=== PATIENT | female | born 1995 | race Two or more races ===

== ENCOUNTER 2023-04-02 06:18 | Emergency (ER) | payer OTHER ==
[~2023-04-02] VITALS: Ht 162.6 cm; Wt 63.5 kg
== END 2023-04-02 13:05 | disposition home or self-care (01) ==
LOC: ER 06:18
DX: S13.4XXA Sprain of ligaments of cervical spine, initial encounter (principal); V49.9XXA Car occupant (driver) (passenger) injured in unspecified traffic accident, initial encounter; Y93.9 Activity, unspecified; Y92.413 State road as the place of occurrence of the external cause; Y99.9 Unspecified external cause status; G89.11 Acute pain due to trauma; Z88.6 Allergy status to analgesic agent; Z91.013 Allergy to seafood

== ENCOUNTER 2023-04-26 21:34 | Emergency (ER) | payer OTHER ==
[~2023-04-26] VITALS: Ht 162.6 cm; Wt 63.5 kg
[2023-04-26 23:23] LABS: HEMATOCRIT 40.7 % (36.0-45.00); MEAN CELL VOLUME 84.9 fL (80.00-100.00); MEAN CORPUSCULAR HEMOGLOBIN 29.2 pg (27.00-32.0); MEAN CORPUSCULAR HGB CONC 34.4 g/dl (32.0-36.0); PLATELET COUNT 226 K/uL (150-450); RED CELL DISTRIBUTION WIDTH 14.1 % (11.5-14.5)
[2023-04-26 23:45] LABS: TSH 0.603 uIU/mL (0.358-3.74)
[2023-04-26 23:47] LABS: HCG QUANTITATIVE < 1 mUI/mL (1-3)
[2023-04-27] LABS: CALCIUM 9.3 mg/dL (8.5-10.1); CREATININE SERUM 0.7 mg/dL (0.55-1.02); GFR 99.64; POTASSIUM 3.66 mEq/L (3.5-5.1)
[2023-04-27 00:16] LABS: URINE APPEARANCE Cloudy; URINE BILIRRUBIN Negative (NEGATIVE); URINE BLOOD Negative; URINE COLOR Yellow; URINE GLUCOSE Negative (NEGATIVE); URINE LEUKOCYTE Small; URINE NITRATE Negative; URINE PROTEIN Negative (NEGATIVE); URINE UROBILINOGEN 0.2 E.U./dl
[2023-04-27 00:19] LABS: URINE BACTERIA 1256.2 uL (0.0-1933); URINE EPITHELIAL CELLS 31.9 uL (0.0-38.8); URINE RBC 8.9 uL (0.0-20.8)
== END 2023-04-27 02:38 | disposition home or self-care (01) ==
LOC: ER 21:35
PROVIDERS: General Practice
DX: R00.2 Palpitations (principal); M25.519 Pain in unspecified shoulder; Z20.822 Contact with and (suspected) exposure to COVID-19; Z88.6 Allergy status to analgesic agent; Z91.013 Allergy to seafood

== ENCOUNTER 2024-10-25 08:57 | Outpatient (CLI) | payer OTHER | END 2024-10-25 09:01 | disposition home or self-care (01) | LOC: TOM 08:57 | PROVIDERS: ATTEND Internal Medicine | DX: R10.84 Generalized abdominal pain (principal) ==